=== PATIENT | female | born 1950 | race Caucasian/White ===

== ENCOUNTER 2018-02-12 12:48 | Inpatient (IN) | payer OTHER ==
[2018-02-12] MEDS: SODIUM CHLORIDE 0.9% 1L BAG IV* (12:54)
[2018-02-12 13:44] LABS: ABNORMAL IP MESSAGE 1; HEMOGLOBIN 8.1 g/dl (12.0-16.0); MEAN CORPUSCULAR HEMOGLOBIN 32.8 pg (29.0-33.0); MEAN CORPUSCULAR HGB CONC 32.4 g/dl (32.0-37.0); MEAN CORPUSCULAR VOLUME 101.2 fl (82.0-101.0); MEAN PLATELET VOLUME 10.8 fl (7.4-10.4); PLATELET COUNT 167 10^3/UL (140-415); RED BLOOD COUNT 2.47 10^6/ul (4.20-5.40); RED CELL DISTRIBUTION WIDTH 14.1 % (11.5-14.5)
[2018-02-12 13:44] LABS: WHITE BLOOD COUNT 0.9 10^3/ul (4.8-10.8)
[2018-02-12 13:47] LABS: ADD MAN DIFF? YES; POSITIVE DIFF @See below
[2018-02-12 13:50] LABS: PATH REVIEW? YES
[2018-02-12 14:02] LABS: ALANINE AMINOTRANSFERASE 33 IU/L (13-69); ALBUMIN 3.4 g/dl (3.3-4.9); ALBUMIN/GLOBULIN RATIO 1.03; ALKALINE PHOSPHATASE 89 IU/L (42-121); AMYLASE 63 U/L (11-123); ANION GAP 14 (5-13); ASPARTATE AMINO TRANSFERASE 81 IU/L (15-46); BILIRUBIN,INDIRECT 1.6 mg/dl (0-1.1); BILIRUBIN,TOTAL 2.5 mg/dl (0.2-1.3); BLOOD UREA NITROGEN 36 mg/dl (7-20); CARBON DIOXIDE 25 mmol/L (21-31); CHLORIDE 95 mmol/L (97-110); CREATININE 2.53 mg/dl (0.44-1.00); Estimated GFR 19 mL/min (>60); GLUCOSE 115 mg/dl (70-220); LIPASE 34 U/L (23-300); POTASSIUM 3.1 mmol/L (3.5-5.1); SODIUM 134 mmol/L (135-144); TOTAL PROTEIN 6.7 g/dl (6.1-8.1)
[2018-02-12 14:09] LABS: INR 0.97
[2018-02-12 14:10] LABS: PARTIAL THROMBOPLASTIN TIME 38.4 Sec (23.0-35.0)
[2018-02-12 14:13] LABS: TROPONIN-I < 0.012 ng/ml (0.000-0.120)
[2018-02-12] MEDS: CEFEPIME 2GM/50 ML (PMX) 50 ML IVPB (14:15)
[2018-02-12 14:29] LABS: ADD UMIC YES; UR AMORPHOUS CRYSTAL FEW /HPF (NONE SEEN); UR ASCORBIC ACID NEGATIVE (NEGATIVE); UR BACTERIA MANY /HPF (NONE SEEN); UR BILIRUBIN (Dip) NEGATIVE (NEGATIVE); UR BLOOD (Dip) 3+ mg/dL (NEGATIVE); UR CLARITY CLOUDY (CLEAR); UR COLOR AMBER (YELLOW); UR GLUCOSE (Dip) NEGATIVE (NEGATIVE); UR KETONES (Dip) NEGATIVE (NEGATIVE); UR LEUKOCYTE ESTERASE (Dip) TRACE Leu/ul (NEGATIVE); UR NITRITE (Dip) NEGATIVE (NEGATIVE); UR RBC 0 /HPF (0-5); UR SPECIFIC GRAVITY (Dip) 1.012 (1.003-1.030); UR TOTAL PROTEIN (Dip) 2+ mg/dl (NEGATIVE); UR UROBILINOGEN (Dip) 2+ mg/dL (NEGATIVE); UR WBC 10 /HPF (0-5)
[2018-02-12 14:41] LABS: LYMPHOCYTES % (M) 20 % (15-51); SEGMENTED NEUTROPHILS (M) % 63 % (39-77)
[2018-02-12 14:42] LABS: ANISOCYTOSIS 2+ (0-0); BURR CELLS 1+ (0-0); EOSINOPHILS % (M) 16 % (0-7); ERYTHROBLAST% (NRBC) (M) 1 % (0-0); GIANT THROMBO% (M) 5 % (0-0); LYMPHOCYTES #M 0.1 10^3/ul (0.8-2.9); MONOCYTES % (M) 1 % (0-11); PLATELET ESTIMATE NORMAL; POIKILOCYTOSIS 1+ (0-0); SMUDGE%M 8 % (0-0)
[2018-02-12] MEDS: VANCOMYCIN 1 GM (PMX) 250 ML IVPB (16:01)
[2018-02-12] MEDS: POTASSIUM CHLORIDE (SR) 10 MEQ TAB PO (17:59)
[2018-02-12] MEDS ORDERED: ONDANSETRON 4 MG INJ IV (18:00)
[2018-02-12] MEDS ORDERED: ACETAMINOPHEN 325 MG TAB PO (18:00)
[2018-02-12] MEDS ORDERED: HYDROCODONE/APAP (5/325) TAB PO (19:00)
[2018-02-12] MEDS ORDERED: NACL 0.9% 3 ML SYG IV (19:00)
[2018-02-12] MEDS: SOD CHLORIDE 0.9% 1,000 ML IV ×2 (19:20→21:06)
[2018-02-12] MEDS ORDERED: LORAZEPAM 2 MG INJ (20:07)
[2018-02-12] MEDS: LORAZEPAM 2 MG INJ IV (20:16)
[2018-02-12] MEDS ORDERED: HEPARIN 5,000 UNIT/0.5 ML VIAL (20:58)
[2018-02-12] MEDS: HEPARIN 5,000 UNIT/1 ML VIAL SC (21:00)
[2018-02-13 05:13] LABS: WHITE BLOOD COUNT 0.8 10^3/ul (4.8-10.8)
[2018-02-13 05:13] LABS: ABNORMAL IP MESSAGE 1; HEMATOCRIT 21.7 % (37.0-47.0); HEMOGLOBIN 7.1 g/dl (12.0-16.0); MEAN CORPUSCULAR HEMOGLOBIN 32.4 pg (29.0-33.0); MEAN CORPUSCULAR HGB CONC 32.7 g/dl (32.0-37.0); MEAN CORPUSCULAR VOLUME 99.1 fl (82.0-101.0); MEAN PLATELET VOLUME 10.8 fl (7.4-10.4); PLATELET COUNT 178 10^3/UL (140-415); RED BLOOD COUNT 2.19 10^6/ul (4.20-5.40); RED CELL DISTRIBUTION WIDTH 14.3 % (11.5-14.5)
[2018-02-13 05:15] LABS: HAAIG REFLEX REFLEX FILED
[2018-02-13 05:16] LABS: ADD MAN DIFF? YES; POSITIVE DIFF @See below
[2018-02-13 05:29] LABS: HEMOGLOBIN A1C 5.8 % (0-5.9)
[2018-02-13 05:40] LABS: PROTIME 13.3 Sec (11.9-14.9)
[2018-02-13 05:43] LABS: IRON 53 ug/dl (35-150)
[2018-02-13 05:50] LABS: ALANINE AMINOTRANSFERASE 43 IU/L (13-69); ALBUMIN 2.7 g/dl (3.3-4.9); ALBUMIN/GLOBULIN RATIO 0.93; ALKALINE PHOSPHATASE 78 IU/L (42-121); ANION GAP 11 (5-13); ASPARTATE AMINO TRANSFERASE 97 IU/L (15-46); BILIRUBIN,TOTAL 2.1 mg/dl (0.2-1.3); BLOOD UREA NITROGEN 29 mg/dl (7-20); CALCIUM 7.3 mg/dl (8.4-10.2); CARBON DIOXIDE 22 mmol/L (21-31); CHLORIDE 105 mmol/L (97-110); CREATININE 1.78 mg/dl (0.44-1.00); Estimated GFR 29 mL/min (>60); GLUCOSE 128 mg/dl (70-220); POTASSIUM 3.1 mmol/L (3.5-5.1); SODIUM 138 mmol/L (135-144); TOTAL PROTEIN 5.6 g/dl (6.1-8.1)
[2018-02-13 05:52] LABS: % IRON SATURATION 27 % SAT (22-52); TOTAL IRON BINDING CAPACITY 193 ug/dl (241-421)
[2018-02-13 06:14] LABS: HEPATITIS B SURFACE ANTIGEN NEGATIVE (NEGATIVE)
[2018-02-13 06:16] LABS: THYROID STIMULATING HORMONE 0.704 MIU/L (0.465-4.680)
[2018-02-13 06:31] LABS: HEPATITIS B CORE ANTIBODY NEGATIVE (NEGATIVE); HEPATITIS C VIRAL ANTIBODY NEGATIVE (NEGATIVE); HIV 1&2 ANTIBODY NEGATIVE (NEGATIVE)
[2018-02-13 07:19] LABS: LACTATE DEHYDROGENASE 530 IU/L (313-618)
[2018-02-13 07:36] LABS: BURR CELLS 1+ (0-0); GIANT THROMBO% (M) 1 % (0-0); LYMPHOCYTES #M 0.3 10^3/ul (0.8-2.9); MONOCYTES % (M) 2 % (0-11); OVALOCYTES 1+ (0-0); PLATELET ESTIMATE NORMAL; POIKILOCYTOSIS 1+ (0-0); SCHISTOCYTES 1+ (0-0); SEG NEUT #M 0.3 10^3/ul (1.6-7.5); TARGET CELLS 1+ (0-0)
[2018-02-13 07:48] LABS: ERYTHROCYTE SEDIMENTATION RATE 65 mm/Hr (0-30)
[2018-02-13] MEDS: CEFTRIAXONE 2 GM/50 ML (PMX) 50 ML IVPB (07:58)
[2018-02-13] MEDS: SOD CHLORIDE 0.9% 1,000 ML IV ×2 (07:59→20:38)
[2018-02-13 09:17] LABS: ANISOCYTOSIS 3+ (0-0); BAND NEUTROPHILS % (M) 10 % (0-4); EOSINOPHILS % (M) 8 % (0-7); LYMPHOCYTES % (M) 44 % (15-51); REACTIVE LYMPHOCYTES% (M) 3 % (0-0); SEGMENTED NEUTROPHILS (M) % 33 % (39-77); SMUDGE%M 14 % (0-0)
[2018-02-13] MEDS ORDERED: HEPARIN 5,000 UNIT/0.5 ML VIAL ×2 (09:20→20:21)
[2018-02-13] MEDS: HEPARIN 5,000 UNIT/1 ML VIAL SC ×2 (09:25→20:38)
[2018-02-13 11:03] LABS: INR 1.02; PROTIME 13.5 Sec (11.9-14.9); PT RATIO 1.1
[2018-02-13] MEDS: POTASSIUM CHLORIDE (SR) 20 MEQ TAB PO (11:11)
[2018-02-13 15:25] LABS: RAPID PLASMA REAGIN NONREACTIVE (NR)
[2018-02-13 18:19] LABS: CREATININE,URINE RANDOM 48.99 mg/dl (20-320); PROTEIN/CREAT RATIO 1.89 RATIO
[2018-02-13 18:33] LABS: SODIUM,URINE RANDOM 54 mmol/L (30-90)
[2018-02-14] MEDS: SOD CHLORIDE 0.9% 1,000 ML IV (04:23)
[2018-02-14] MEDS: HEPARIN 5,000 UNIT/1 ML VIAL SC ×2 (05:45→20:51)
[2018-02-14] MEDS: HALOPERIDOL 5 MG INJ IM (06:25)
[2018-02-14] MEDS: CEFTRIAXONE 2 GM/50 ML (PMX) 50 ML IVPB (06:25)
[2018-02-14 10:17] LABS: RETICULOCYTE COUNT % 0.5 % (0.5-1.5)
[2018-02-14 10:17] LABS: RETICULOCYTE RBC 2.06
[2018-02-14 10:45] LABS: CREATINE KINASE 261 IU/L (23-200)
[2018-02-14 10:45] LABS: URIC ACID 2.9 mg/dl (3.1-7.9)
[2018-02-14 14:42] LABS: HAPTOGLOBIN 365 mg/dL (43-212)
[2018-02-14 15:41] LABS: ANION GAP 15 (5-13); BLOOD UREA NITROGEN 21 mg/dl (7-20); CALCIUM 7.9 mg/dl (8.4-10.2); CARBON DIOXIDE 22 mmol/L (21-31); CHLORIDE 106 mmol/L (97-110); CREATININE 1.51 mg/dl (0.44-1.00); Estimated GFR 34 mL/min (>60); GLUCOSE 116 mg/dl (70-220); POTASSIUM 3.4 mmol/L (3.5-5.1); SODIUM 143 mmol/L (135-144)
[2018-02-14] MEDS ORDERED: HEPARIN 5,000 UNIT/0.5 ML VIAL (20:38)
[2018-02-15] MEDS: HALOPERIDOL 5 MG INJ IM (03:59)
[2018-02-15] MEDS: CEFTRIAXONE 2 GM/50 ML (PMX) 50 ML IVPB (05:26)
[2018-02-15 05:49] LABS: ADD MAN DIFF? NO
[2018-02-15 05:56] LABS: WHITE BLOOD COUNT 0.6 10^3/ul (4.8-10.8)
[2018-02-15 05:56] LABS: ABNORMAL IP MESSAGE 1; EOSINOPHILS % 6.7 % (0.0-7.0); HEMATOCRIT 20.7 % (37.0-47.0); LYMPHOCYTES # 0.3 10^3/ul (0.8-2.9); MEAN CORPUSCULAR HEMOGLOBIN 32.1 pg (29.0-33.0); MEAN CORPUSCULAR HGB CONC 32.9 g/dl (32.0-37.0); MEAN CORPUSCULAR VOLUME 97.6 fl (82.0-101.0); MEAN PLATELET VOLUME 10.8 fl (7.4-10.4); MONOCYTES % 3.3 % (0.0-11.0); NEUTROPHIL # 0.2 10^3/ul (1.6-7.5); PLATELET COUNT 192 10^3/UL (140-415); RED BLOOD COUNT 2.12 10^6/ul (4.20-5.40)
[2018-02-15 06:05] LABS: HEMOGLOBIN 6.8 g/dl (12.0-16.0); LYMPHOCYTES % 51.7 % (15.0-51.0); POSITIVE DIFF @See below
[2018-02-15] MEDS: SOD CHLORIDE 0.9% 250 ML IV* (06:08)
[2018-02-15 06:09] LABS: MAGNESIUM 1.2 mg/dl (1.7-2.5)
[2018-02-15 06:12] LABS: INR 0.97; PARTIAL THROMBOPLASTIN TIME 32.5 Sec (23.0-35.0)
[2018-02-15 06:23] LABS: ALANINE AMINOTRANSFERASE 72 IU/L (13-69); ALBUMIN 2.9 g/dl (3.3-4.9); ALBUMIN/GLOBULIN RATIO 0.96; ALKALINE PHOSPHATASE 82 IU/L (42-121); ANION GAP 12 (5-13); ASPARTATE AMINO TRANSFERASE 122 IU/L (15-46); BILIRUBIN,INDIRECT 1.1 mg/dl (0-1.1); BILIRUBIN,TOTAL 1.2 mg/dl (0.2-1.3); BLOOD UREA NITROGEN 18 mg/dl (7-20); CARBON DIOXIDE 26 mmol/L (21-31); CHLORIDE 104 mmol/L (97-110); CREATININE 1.42 mg/dl (0.44-1.00); Estimated GFR 37 mL/min (>60); GLUCOSE 130 mg/dl (70-220); SODIUM 142 mmol/L (135-144); TOTAL PROTEIN 5.9 g/dl (6.1-8.1)
[2018-02-15 06:29] LABS: POTASSIUM 2.8 mmol/L (3.5-5.1)
[2018-02-15] MEDS ORDERED: PROPOFOL 200 MG INJ (07:00)
[2018-02-15 07:37] LABS: ANISOCYTOSIS 2+ (0-0); BAND NEUTROPHILS % (M) 1 % (0-4); BASOPHILS % (M) 1 % (0-2); BURR CELLS 1+ (0-0); ELLIPTO 1+ (0-0); EOSINOPHILS % (M) 4 % (0-7); HYPOCHROMASIA 2+ (0-0); LYMPHOCYTES #M 0.2 10^3/ul (0.8-2.9); LYMPHOCYTES % (M) 49 % (15-51); OVALOCYTES 1+ (0-0); PLATELET ESTIMATE NORMAL; POIKILOCYTOSIS 1+ (0-0); SEG NEUT #M 0.3 10^3/ul (1.6-7.5); SEGMENTED NEUTROPHILS (M) % 45 % (39-77); SMUDGE%M 9 % (0-0)
[2018-02-15] MEDS: MAGNESIUM SULFATE 4 GM/100 ML 100 ML IVPB (07:49)
[2018-02-15] MEDS: HEPARIN 5,000 UNIT/1 ML VIAL SC ×2 (08:58→21:05)
[2018-02-15] MEDS: LORAZEPAM 2 MG INJ IV ×2 (08:59→10:30)
[2018-02-15] MEDS: POTASSIUM CHLORIDE 100 ML IVPB ×3 (11:00→20:52)
[2018-02-15] MEDS: LIDOCAINE 1% (MPF) 5 ML VIAL (11:34)
[2018-02-15] MEDS: MIDAZOLAM 1 MG/ML 2 ML INJ (12:03)
[2018-02-15] MEDS: PROPOFOL 100 ML (12:04)
[2018-02-15] MEDS: EPHEDrine SULFATE 50 MG/5 ML SYG (12:37)
[2018-02-15] MEDS ORDERED: HYDROmorphONE 1 MG/5 ML IV SYRINGE IV ×2 (13:00)
[2018-02-15] MEDS ORDERED: FENTAnyl 50 MCG/ML VIAL IV (13:00)
[2018-02-15] MEDS ORDERED: MIDAZOLAM 1 MG/ML 2 ML INJ IV (13:00)
[2018-02-15] MEDS ORDERED: ONDANSETRON 4 MG INJ IV (13:00)
[2018-02-15] MEDS ORDERED: DIPHENHYDRAMINE 50 MG INJ IV (13:00)
[2018-02-15] MEDS ORDERED: LEVALBUTEROL (NEB) 1.25 MG/0.5 ML AMP HHN (13:00)
[2018-02-15 16:28] LABS: COLLECTION PERIOD 24 hrs
[2018-02-15 16:57] LABS: CREATININE,URINE RANDOM 40.35 mg/dl (20-320)
[2018-02-15 16:59] LABS: COLLECTION PERIOD 24 hrs; VOLUME 1075 ml/24hrs
[2018-02-15 17:00] LABS: CREATININE CLEARANCE 21.2 mls/min (84.0-162.0); SCRET 1.42 mg/dl (0.44-1.00)
[2018-02-15 17:06] LABS: VOLUME 1075 mls
[2018-02-15] MEDS ORDERED: HEPARIN 5,000 UNIT/0.5 ML VIAL (20:48)
[2018-02-16] MEDS: POTASSIUM CHLORIDE 100 ML IVPB (01:04)
[2018-02-16 01:11] LABS: AMPHETAMINE/METHAMPHETAMINE Negative (NEGATIVE); BARBITURATES Negative (NEGATIVE); BENZODIAZEPINES Positive (NEGATIVE); CANNABINOIDS Negative (NEGATIVE); COCAINE Negative (NEGATIVE); OPIATES Negative (NEGATIVE)
[2018-02-16 03:29] LABS: IMMEDIATE SPIN CROSSMATCH 1 2
[2018-02-16] MEDS: CEFTRIAXONE 2 GM/50 ML (PMX) 50 ML IVPB (06:30)
[2018-02-16] MEDS: HEPARIN 5,000 UNIT/1 ML VIAL SC ×2 (09:00→21:23)
[2018-02-16] MEDS ORDERED: HEPARIN 5,000 UNIT/0.5 ML VIAL ×2 (09:09→21:17)
[2018-02-16 09:29] LABS: ABNORMAL IP MESSAGE 1; HEMATOCRIT 28.6 % (37.0-47.0); HEMOGLOBIN 9.7 g/dl (12.0-16.0); MEAN CORPUSCULAR HGB CONC 33.9 g/dl (32.0-37.0); MEAN CORPUSCULAR VOLUME 91.4 fl (82.0-101.0); MEAN PLATELET VOLUME 10.3 fl (7.4-10.4); PLATELET COUNT 168 10^3/UL (140-415); RED BLOOD COUNT 3.13 10^6/ul (4.20-5.40); RED CELL DISTRIBUTION WIDTH 17.1 % (11.5-14.5)
[2018-02-16 09:31] LABS: POSITIVE DIFF @See below
[2018-02-16 09:32] LABS: ADD MAN DIFF? YES
[2018-02-16 09:56] LABS: ALANINE AMINOTRANSFERASE 66 IU/L (13-69); ALBUMIN/GLOBULIN RATIO 0.93; ALKALINE PHOSPHATASE 87 IU/L (42-121); ANION GAP 12 (5-13); ASPARTATE AMINO TRANSFERASE 76 IU/L (15-46); BLOOD UREA NITROGEN 14 mg/dl (7-20); CALCIUM 8.2 mg/dl (8.4-10.2); CARBON DIOXIDE 25 mmol/L (21-31); CHLORIDE 104 mmol/L (97-110); CREATININE 1.31 mg/dl (0.44-1.00); Estimated GFR 41 mL/min (>60); GLUCOSE 121 mg/dl (70-220); POTASSIUM 3.5 mmol/L (3.5-5.1); SODIUM 141 mmol/L (135-144); TOTAL PROTEIN 6.2 g/dl (6.1-8.1)
[2018-02-16 09:58] LABS: INR 0.88; PARTIAL THROMBOPLASTIN TIME 29.4 Sec (23.0-35.0); PT RATIO 0.9
[2018-02-16 10:12] LABS: AMMONIA < 9 umol/l (9-30)
[2018-02-16] MEDS: LIDOCAINE 1% (MPF) 5 ML VIAL (10:13)
[2018-02-16 10:35] LABS: ANISOCYTOSIS 2+ (0-0); BAND NEUTROPHILS % (M) 7 % (0-4); BURR CELLS 1+ (0-0); ELLIPTO 1+ (0-0); EOSINOPHILS % (M) 6 % (0-7); GIANT THROMBO% (M) 4 % (0-0); LYMPHOCYTES #M 0.5 10^3/ul (0.8-2.9); LYMPHOCYTES % (M) 58 % (15-51); MONOCYTES % (M) 2 % (0-11); PLATELET ESTIMATE NORMAL; POIKILOCYTOSIS 1+ (0-0); SEG NEUT #M 0.3 10^3/ul (1.6-7.5); SEGMENTED NEUTROPHILS (M) % 27 % (39-77); SMUDGE%M 6 % (0-0); SPHEROCYTES 1+ (0-0); TARGET CELLS 1+ (0-0)
[2018-02-16] MEDS ORDERED: FENTAnyl 50 MCG/ML VIAL IV ×2 (13:00)
[2018-02-16] MEDS ORDERED: DIPHENHYDRAMINE 50 MG INJ IV (13:00)
[2018-02-16] MEDS ORDERED: LABETALOL HCL 20MG INJ IV (13:00)
[2018-02-16] MEDS ORDERED: HYDROmorphONE 1 MG/5 ML IV SYRINGE IV ×2 (13:00)
[2018-02-16] MEDS ORDERED: METOCLOPRAMIDE 10 MG INJ IV (13:00)
[2018-02-16] MEDS ORDERED: hydrALAzine 20 MG INJ IV (13:00)
[2018-02-16] MEDS ORDERED: ALBUMIN HUMAN 5% 250 ML IV (13:00)
[2018-02-16] MEDS ORDERED: ONDANSETRON 4 MG INJ IV (13:00)
[2018-02-16] MEDS ORDERED: EPHEDrine SULFATE 50 MG/5 ML SYG IV (13:00)
[2018-02-16] MEDS: PROPOFOL 40 ML (13:50)
[2018-02-16] MEDS: PHENYLephrine (100 MCG/ML) 5ML SYG (13:50)
[2018-02-16 13:54] LABS: CSF RBC 0 /uL (0-0); CSF WBC 3 /cmm (0-10)
[2018-02-16 14:18] LABS: CSF CLARITY CLEAR; CSF COLOR COLORLESS; CSF WBC 3 /cmm (0-10); CSF#TUBE COUNT TUBE#1; CSF#TUBES REC'D 3
[2018-02-16 14:19] LABS: CSF MN% 33.3 %; CSF PMN% 66.7 %; CSF RBC 0 /uL (0-0)
[2018-02-16 14:21] LABS: CSF COLOR COLORLESS
[2018-02-16 14:21] LABS: CSF CLARITY CLEAR; CSF#TUBE COUNT TUBE#3; CSF#TUBES REC'D 3
[2018-02-16 14:58] LABS: GLUCOSE,CSF 76 mg/dl (50-80)
[2018-02-16 14:58] LABS: TOTAL PROTEIN,CSF 62 mg/dl (12-60)
[2018-02-16 23:09] LABS: ERYTHROPOIETIN 117.7 mIU/mL (2.6-18.5)
[2018-02-17 06:00] LABS: ABNORMAL IP MESSAGE 1; HEMATOCRIT 30.2 % (37.0-47.0); MEAN CORPUSCULAR HEMOGLOBIN 31.1 pg (29.0-33.0); MEAN CORPUSCULAR HGB CONC 33.1 g/dl (32.0-37.0); MEAN CORPUSCULAR VOLUME 93.8 fl (82.0-101.0); MEAN PLATELET VOLUME 10.8 fl (7.4-10.4); PLATELET COUNT 131 10^3/UL (140-415); RED BLOOD COUNT 3.22 10^6/ul (4.20-5.40)
[2018-02-17 06:27] LABS: POSITIVE DIFF @See below
[2018-02-17 06:28] LABS: ADD MAN DIFF? YES
[2018-02-17] MEDS: CEFTRIAXONE 2 GM/50 ML (PMX) 50 ML IVPB (06:37)
[2018-02-17 07:00] LABS: ALANINE AMINOTRANSFERASE 61 IU/L (13-69); ALBUMIN 3.1 g/dl (3.3-4.9); ALBUMIN/GLOBULIN RATIO 0.91; ALKALINE PHOSPHATASE 81 IU/L (42-121); ANION GAP 12 (5-13); ASPARTATE AMINO TRANSFERASE 69 IU/L (15-46); BILIRUBIN,INDIRECT 1.2 mg/dl (0-1.1); BILIRUBIN,TOTAL 1.2 mg/dl (0.2-1.3); BLOOD UREA NITROGEN 16 mg/dl (7-20); CALCIUM 8.3 mg/dl (8.4-10.2); CARBON DIOXIDE 26 mmol/L (21-31); CHLORIDE 108 mmol/L (97-110); CREATININE 1.32 mg/dl (0.44-1.00); Estimated GFR 40 mL/min (>60); GLUCOSE 94 mg/dl (70-220); SODIUM 146 mmol/L (135-144); TOTAL PROTEIN 6.5 g/dl (6.1-8.1)
[2018-02-17 07:37] LABS: POTASSIUM 3.9 mmol/L (3.5-5.1)
[2018-02-17] MEDS ORDERED: HEPARIN 5,000 UNIT/0.5 ML VIAL ×2 (09:07→20:06)
[2018-02-17] MEDS: NICOTINE (21 MG/24 HR) PATCH TRANSDERM (09:13)
[2018-02-17] MEDS: HEPARIN 5,000 UNIT/1 ML VIAL SC ×2 (09:14→20:32)
[2018-02-17 09:16] LABS: ANISOCYTOSIS 1+ (0-0); BAND NEUTROPHILS % (M) 3 % (0-4); BASOPHILS % (M) 2 % (0-2); BURR CELLS 1+ (0-0); EOSINOPHILS % (M) 12 % (0-7); ERYTHROBLAST% (NRBC) (M) 1 % (0-0); LYMPHOCYTES #M 0.5 10^3/ul (0.8-2.9); LYMPHOCYTES % (M) 55 % (15-51); MONOCYTES % (M) 2 % (0-11); OVALOCYTES 1+ (0-0); PLATELET ESTIMATE INCREASED; POIKILOCYTOSIS 1+ (0-0); SEG NEUT #M 0.3 10^3/ul (1.6-7.5); SEGMENTED NEUTROPHILS (M) % 27 % (39-77); SMUDGE%M 29 % (0-0)
[2018-02-17] MEDS ORDERED: PENDING SANTYL ORDER FOR WOUND CARE XX (16:30)
[2018-02-17 17:42] LABS: LYMPHOCYTE - % CD4 (HELPER) 66 % (30-61); LYMPHOCYTE - %CD8 (SUPPRESSOR) 17 % (12-42); LYMPHOCYTE - ABSOLUTE 591 cells/uL (850-3900); LYMPHOCYTE - ABSOLUTE CD4 392 cells/uL (490-1740); LYMPHOCYTE - ABSOLUTE CD8 99 cells/uL (180-1170); LYMPHOCYTE - CD4/CD8 RATIO 3.94 (0.86-5.00)
[2018-02-18] MEDS: CEFTRIAXONE 2 GM/50 ML (PMX) 50 ML IVPB (05:51)
[2018-02-18] MEDS ORDERED: HEPARIN 5,000 UNIT/0.5 ML VIAL ×2 (08:37→20:16)
[2018-02-18] MEDS: NICOTINE (21 MG/24 HR) PATCH TRANSDERM (09:00)
[2018-02-18] MEDS: COLLAGENASE 5 GM (UD JAR) TOP ×2 (09:00→14:25)
[2018-02-18] MEDS ORDERED: COLLAGENASE 5 GM (UD JAR) TOP (09:00)
[2018-02-18] MEDS: HEPARIN 5,000 UNIT/1 ML VIAL SC ×2 (09:13→20:38)
[2018-02-19] MEDS: CEFTRIAXONE 2 GM/50 ML (PMX) 50 ML IVPB (05:22)
[2018-02-19 07:09] LABS: ABNORMAL IP MESSAGE 1; HEMATOCRIT 27.8 % (37.0-47.0); HEMOGLOBIN 9.1 g/dl (12.0-16.0); MEAN CORPUSCULAR HEMOGLOBIN 30.7 pg (29.0-33.0); MEAN CORPUSCULAR HGB CONC 32.7 g/dl (32.0-37.0); MEAN CORPUSCULAR VOLUME 93.9 fl (82.0-101.0); MEAN PLATELET VOLUME 10.9 fl (7.4-10.4); PLATELET COUNT 118 10^3/UL (140-415); RED BLOOD COUNT 2.96 10^6/ul (4.20-5.40); RED CELL DISTRIBUTION WIDTH 15.5 % (11.5-14.5)
[2018-02-19 07:09] LABS: WHITE BLOOD COUNT 0.9 10^3/ul (4.8-10.8)
[2018-02-19 07:15] LABS: ADD MAN DIFF? YES; POSITIVE DIFF @See below
[2018-02-19 07:36] LABS: ANION GAP 11 (5-13); BLOOD UREA NITROGEN 16 mg/dl (7-20); CALCIUM 8.1 mg/dl (8.4-10.2); CARBON DIOXIDE 23 mmol/L (21-31); CHLORIDE 106 mmol/L (97-110); CREATININE 1.31 mg/dl (0.44-1.00); Estimated GFR 41 mL/min (>60); GLUCOSE 126 mg/dl (70-220); POTASSIUM 3.1 mmol/L (3.5-5.1); SODIUM 140 mmol/L (135-144)
[2018-02-19] MEDS: POTASSIUM CHLORIDE (SR) 20 MEQ TAB PO (09:42)
[2018-02-19] MEDS: NICOTINE (21 MG/24 HR) PATCH TRANSDERM (09:43)
[2018-02-19] MEDS: COLLAGENASE 5 GM (UD JAR) TOP (16:55)
[2018-02-19] MEDS: FILGRASTIM 300 MCG INJ SC (16:55)
[2018-02-20 01:42] LABS: VITAMIN B1 (THIAMINE) 64 nmol/L (78-185)
[2018-02-20] MEDS ORDERED: FILGRASTIM 300 MCG INJ SC (17:00)
== END 2018-02-19 19:06 | DRG 853 ==
LOC: 6WM 02-15 09:12 → PP2 02-17 02:09 → E/R 12:48 → 6WM 17:37
PROVIDERS: Internal Medicine
PROC: 009U3ZX Drainage of Spinal Canal, Percutaneous Approach, Diagnostic (ICD-10-PCS; 2018-02-16 11:00)
PROC: B01BZZZ Fluoroscopy of Spinal Cord (ICD-10-PCS; 2018-02-16 11:00)
PROC: 07DR3ZX Extraction of Iliac Bone Marrow, Percutaneous Approach, Diagnostic (ICD-10-PCS; principal; 2018-02-16 12:34)
PROC: 0QB33ZX Excision of Left Pelvic Bone, Percutaneous Approach, Diagnostic (ICD-10-PCS; 2018-02-16 12:34)
PROC: 30233N1 Transfusion of Nonautologous Red Blood Cells into Peripheral Vein, Percutaneous Approach (ICD-10-PCS; 2018-02-16 12:34)
DX: A41.9 Sepsis, unspecified organism (principal); G92 Toxic encephalopathy; N17.0 Acute kidney failure with tubular necrosis; D61.811 Other drug-induced pancytopenia; N39.0 Urinary tract infection, site not specified; E87.1 Hypo-osmolality and hyponatremia; E46 Unspecified protein-calorie malnutrition; Z68.24 Body mass index [BMI] 24.0-24.9, adult; I12.9 Hypertensive chronic kidney disease with stage 1 through stage 4 chronic kidney disease, or unspecified chronic kidney disease; E87.6 Hypokalemia; Z86.73 Personal history of transient ischemic attack (TIA), and cerebral infarction without residual deficits; E80.6 Other disorders of bilirubin metabolism; Z91.81 History of falling; N18.3 Chronic kidney disease, stage 3 (moderate); B96.20 Unspecified Escherichia coli [E. coli] as the cause of diseases classified elsewhere; E78.5 Hyperlipidemia, unspecified; T45.1X5A Adverse effect of antineoplastic and immunosuppressive drugs, initial encounter; E83.39 Other disorders of phosphorus metabolism; E83.42 Hypomagnesemia
CPT/HCPCS: 36430; 70450; 70551; 71045; 76700; 77002; 77012; 80048; 80053; 80307; 81001; 81003; 82140; 82150; 82550; 82570; 82575; 82607; 82668; 82728; 82945; 83010; 83036; 83090; 83540; 83605; 83615; 83690; 83735; 83921; 84100; 84156; 84157; 84300; 84425; 84443; 84484; 84560; 85025; 85045; 85610; 85651; 85730; 86360; 86592; 86703; 86704; 86709; 86803; 86850; 86900; 86901; 86920; 87040; 87070; 87081; 87086; 87340; 88305; 88311; 88313; 89051; 89190; 93005; 93306; 96374; 96376; 97162; 99285-25

== ENCOUNTER 2018-02-21 13:55 | Inpatient (IN) | payer OTHER ==
[2018-02-21] MEDS: SOD CHLORIDE 0.9% 1,000 ML IV ×3 (17:02→23:11)
[2018-02-21 17:08] LABS: ADD MAN DIFF? NO
[2018-02-21 17:12] LABS: ABNORMAL IP MESSAGE 1; HEMATOCRIT 24.8 % (37.0-47.0); HEMOGLOBIN 7.8 g/dl (12.0-16.0); MEAN CORPUSCULAR HEMOGLOBIN 31.2 pg (29.0-33.0); MEAN CORPUSCULAR HGB CONC 31.5 g/dl (32.0-37.0); MEAN CORPUSCULAR VOLUME 99.2 fl (82.0-101.0); MEAN PLATELET VOLUME 11.3 fl (7.4-10.4); PLATELET COUNT 170 10^3/UL (140-415); RED CELL DISTRIBUTION WIDTH 15.9 % (11.5-14.5)
[2018-02-21 17:12] LABS: WHITE BLOOD COUNT 2.8 10^3/ul (4.8-10.8)
[2018-02-21 17:18] LABS: POSITIVE DIFF @See below
[2018-02-21 17:46] LABS: ALANINE AMINOTRANSFERASE 53 IU/L (13-69); ALBUMIN 3.1 g/dl (3.3-4.9); ALKALINE PHOSPHATASE 73 IU/L (42-121); ANION GAP 14 (5-13); ASPARTATE AMINO TRANSFERASE 41 IU/L (15-46); BILIRUBIN,INDIRECT 0.4 mg/dl (0-1.1); BILIRUBIN,TOTAL 0.4 mg/dl (0.2-1.3); BLOOD UREA NITROGEN 30 mg/dl (7-20); CALCIUM 8.7 mg/dl (8.4-10.2); CARBON DIOXIDE 24 mmol/L (21-31); CHLORIDE 99 mmol/L (97-110); CREATININE 3.14 mg/dl (0.44-1.00); Estimated GFR 15 mL/min (>60); GLUCOSE 92 mg/dl (70-220); POTASSIUM 4.7 mmol/L (3.5-5.1); SODIUM 137 mmol/L (135-144); TOTAL PROTEIN 6.2 g/dl (6.1-8.1)
[2018-02-21 17:47] LABS: ETHANOL < 10.0 mg/dl (0-0)
[2018-02-21 17:48] LABS: AMMONIA < 9 umol/l (9-30)
[2018-02-21 18:02] LABS: ANISOCYTOSIS 1+ (0-0); BAND NEUTROPHILS #M 0.1 10^3/ul (0.0-0.6); BAND NEUTROPHILS % (M) 5 % (0-4); EOSINOPHILS % (M) 6 % (0-7); ERYTHROBLAST% (NRBC) (M) 1 % (0-0); LYMPHOCYTES % (M) 39 % (15-51); METAMYELOCYTES %M 1 % (0-0); MONOCYTE #M 0.5 10^3/ul (0.3-0.9); MONOCYTES % (M) 20 % (0-11); MYELOCYTES % (M) 2 % (0-0); PLATELET MORPHOLOGY COMMENT @See below; PROMYELOCYTES % (M) 1 % (0-0); SEG NEUT #M 0.7 10^3/ul (1.6-7.5); SEGMENTED NEUTROPHILS (M) % 25 % (39-77); SMUDGE%M 10 % (0-0)
[2018-02-21 19:47] LABS: ADD UMIC YES; UR ASCORBIC ACID NEGATIVE (NEGATIVE); UR BACTERIA FEW /HPF (NONE SEEN); UR BILIRUBIN (Dip) NEGATIVE (NEGATIVE); UR BLOOD (Dip) 2+ mg/dL (NEGATIVE); UR CLARITY CLOUDY (CLEAR); UR COLOR YELLOW (YELLOW); UR GLUCOSE (Dip) NEGATIVE (NEGATIVE); UR KETONES (Dip) NEGATIVE (NEGATIVE); UR LEUKOCYTE ESTERASE (Dip) TRACE Leu/ul (NEGATIVE); UR MUCUS FEW /HPF (NONE SEEN); UR NITRITE (Dip) NEGATIVE (NEGATIVE); UR RBC 2 /HPF (0-5); UR SQUAMOUS EPITHELIAL CELL FEW /HPF (FEW); UR TOTAL PROTEIN (Dip) 1+ mg/dl (NEGATIVE); UR UROBILINOGEN (Dip) NEGATIVE (NEGATIVE); UR WBC 35 /HPF (0-5)
[2018-02-21] MEDS ORDERED: ONDANSETRON 4 MG INJ IV ×2 (20:00→22:30)
[2018-02-21] MEDS ORDERED: ACETAMINOPHEN 325 MG TAB PO ×2 (20:00→22:30)
[2018-02-21 20:11] LABS: AMPHETAMINE/METHAMPHETAMINE Negative (NEGATIVE); BARBITURATES Negative (NEGATIVE); CANNABINOIDS Negative (NEGATIVE); COCAINE Negative (NEGATIVE); OPIATES Negative (NEGATIVE)
[2018-02-21 20:17] LABS: BENZODIAZEPINES Positive (NEGATIVE)
[2018-02-21] MEDS ORDERED: ALBUTEROL/IPRATROPIUM (NEB) 3 ML AMP HHN (22:30)
[2018-02-21] MEDS ORDERED: NACL 0.9% 3 ML SYG IV (22:30)
[2018-02-21] MEDS: CEFTRIAXONE 1 GM/50 ML (PMX) 50 ML IVPB (23:22)
[2018-02-22] MEDS: SOD CHLORIDE 0.9% 1,000 ML IV ×3 (01:46→21:55)
[2018-02-22] MEDS ORDERED: PENDING SANTYL ORDER FOR WOUND CARE XX (02:00)
[2018-02-22] MEDS: LEVOTHYROXINE 75 MCG TAB PO (06:49)
[2018-02-22] MEDS: PANTOPRAZOLE (EC) 40 MG TAB PO (06:49)
[2018-02-22 07:53] LABS: ABNORMAL IP MESSAGE 1; HEMATOCRIT 23.2 % (37.0-47.0); HEMOGLOBIN 7.2 g/dl (12.0-16.0); MEAN CORPUSCULAR HEMOGLOBIN 31.4 pg (29.0-33.0); MEAN CORPUSCULAR VOLUME 101.3 fl (82.0-101.0); MEAN PLATELET VOLUME 11.6 fl (7.4-10.4); PLATELET COUNT 132 10^3/UL (140-415); RED BLOOD COUNT 2.29 10^6/ul (4.20-5.40); RED CELL DISTRIBUTION WIDTH 15.9 % (11.5-14.5)
[2018-02-22 07:53] LABS: WHITE BLOOD COUNT 3.9 10^3/ul (4.8-10.8)
[2018-02-22 07:54] LABS: ADD MAN DIFF? YES; POSITIVE DIFF @See below
[2018-02-22 08:41] LABS: ALANINE AMINOTRANSFERASE 42 IU/L (13-69); ALBUMIN 2.4 g/dl (3.3-4.9); ALBUMIN/GLOBULIN RATIO 0.82; ALKALINE PHOSPHATASE 61 IU/L (42-121); ANION GAP 11 (5-13); ASPARTATE AMINO TRANSFERASE 50 IU/L (15-46); BILIRUBIN,INDIRECT 0.2 mg/dl (0-1.1); BILIRUBIN,TOTAL 0.2 mg/dl (0.2-1.3); BLOOD UREA NITROGEN 25 mg/dl (7-20); CALCIUM 7.7 mg/dl (8.4-10.2); CARBON DIOXIDE 18 mmol/L (21-31); CHLORIDE 111 mmol/L (97-110); CREATININE 2.35 mg/dl (0.44-1.00); Estimated GFR 21 mL/min (>60); GLUCOSE 81 mg/dl (70-220); MAGNESIUM 1.4 mg/dl (1.7-2.5); POTASSIUM 4.3 mmol/L (3.5-5.1); SODIUM 140 mmol/L (135-144); TOTAL PROTEIN 5.3 g/dl (6.1-8.1)
[2018-02-22] MEDS ORDERED: IRON PO (09:00)
[2018-02-22] MEDS ORDERED: [UNRECOGNIZED DRUG - OTHER] PO (09:00)
[2018-02-22] MEDS: MAGNESIUM SULFATE 2 GM/50 ML 50 ML IVPB (09:00)
[2018-02-22] MEDS ORDERED: FOLIC ACID PO (09:00)
[2018-02-22] MEDS ORDERED: MULTIVITAMIN PO (09:00)
[2018-02-22] MEDS: AMLODIPINE 10 MG TAB PO (09:00)
[2018-02-22] MEDS ORDERED: NON-FORMULARY/PATIENT OWN MED (Omeprazole* 40 MG) PO (09:00)
[2018-02-22 09:12] LABS: ANISOCYTOSIS 1+ (0-0); BAND NEUTROPHILS #M 0.3 10^3/ul (0.0-0.6); BAND NEUTROPHILS % (M) 8 % (0-4); BURR CELLS 1+ (0-0); EOSINOPHILS % (M) 1 % (0-7); GIANT THROMBO% (M) 2 % (0-0); LYMPHOCYTES #M 1.5 10^3/ul (0.8-2.9); LYMPHOCYTES % (M) 39 % (15-51); METAMYELOCYTES %M 2 % (0-0); MONOCYTE #M 0.5 10^3/ul (0.3-0.9); MONOCYTES % (M) 14 % (0-11); MYELOCYTES #M 0.1 10^3/ul (0.0-0.0); MYELOCYTES % (M) 4 % (0-0); OVALOCYTES 1+ (0-0); PLATELET ESTIMATE NORMAL; POIKILOCYTOSIS 2+ (0-0); POLYCHROMASIA 1+ (0-0); PROMYELOCYTES % (M) 1 % (0-0); RBC MORPHOLOGY COMMENT @See below; REACTIVE LYMPHOCYTES% (M) 1 % (0-0); SEG NEUT #M 1.1 10^3/ul (1.6-7.5); SEGMENTED NEUTROPHILS (M) % 27 % (39-77); SMUDGE%M 12 % (0-0); WBC MORPHOLOGY COMMENT @See below
[2018-02-22] MEDS: MULTIVITAMINS/MINERALS TAB PO (09:51)
[2018-02-22] MEDS: ASPIRIN (EC) 81 MG TAB PO (09:51)
[2018-02-22] MEDS: CEFTRIAXONE 1 GM/50 ML (PMX) 50 ML IVPB (09:52)
[2018-02-22] MEDS: SOD CHLORIDE 0.9% 250 ML IV* (11:00)
[2018-02-22 11:44] LABS: IMMEDIATE SPIN CROSSMATCH 1 2
[2018-02-22 15:44] LABS: POTASSIUM,URINE RANDOM 11.9 mmol/L (25-125)
[2018-02-22 15:44] LABS: SODIUM,URINE RANDOM 44 mmol/L (30-90)
[2018-02-22] MEDS: CYANOCOBALAMIN 1000 MCG INJ IM (20:01)
[2018-02-22] MEDS: EPOETIN 10000 UNITS/ML VIAL (ONCOLOGY) SC (20:03)
[2018-02-22] MEDS: CLOTRIMAZOLE 1% 30 GM CR TOP (21:51)
[2018-02-22] MEDS: ATORVASTATIN 20 MG TAB PO (21:55)
[2018-02-22] MEDS: MONTELUKAST 10 MG TAB PO (21:55)
[2018-02-22] MEDS: MAGNESIUM SULFATE 1 GM/D5W 50 ML IVPB (21:56)
[2018-02-23] MEDS: MAGNESIUM SULFATE 1 GM/D5W 50 ML IVPB (00:05)
[2018-02-23] MEDS: LEVOTHYROXINE 75 MCG TAB PO (05:56)
[2018-02-23] MEDS: PANTOPRAZOLE (EC) 40 MG TAB PO (05:56)
[2018-02-23 06:28] LABS: ABNORMAL IP MESSAGE 1; HEMATOCRIT 32.2 % (37.0-47.0); HEMOGLOBIN 10.7 g/dl (12.0-16.0); MEAN CORPUSCULAR HEMOGLOBIN 29.8 pg (29.0-33.0); MEAN CORPUSCULAR HGB CONC 33.2 g/dl (32.0-37.0); MEAN CORPUSCULAR VOLUME 89.7 fl (82.0-101.0); MEAN PLATELET VOLUME 10.5 fl (7.4-10.4); NUCLEATED RED BLOOD CELLS% 0.3 /100WBC (0.0-0.0); PLATELET COUNT 199 10^3/UL (140-415); RED BLOOD COUNT 3.59 10^6/ul (4.20-5.40); RED CELL DISTRIBUTION WIDTH 20.3 % (11.5-14.5)
[2018-02-23 06:28] LABS: WHITE BLOOD COUNT 5.8 10^3/ul (4.8-10.8)
[2018-02-23 06:33] LABS: ADD MAN DIFF? YES; POSITIVE DIFF @See below
[2018-02-23] MEDS: SOD CHLORIDE 0.9% 1,000 ML IV ×2 (07:04→14:22)
[2018-02-23 07:12] LABS: ANION GAP 8 (5-13); BLOOD UREA NITROGEN 22 mg/dl (7-20); CARBON DIOXIDE 20 mmol/L (21-31); CHLORIDE 111 mmol/L (97-110); CREATININE 1.61 mg/dl (0.44-1.00); Estimated GFR 32 mL/min (>60); GLUCOSE 100 mg/dl (70-220); MAGNESIUM 1.9 mg/dl (1.7-2.5); POTASSIUM 4.3 mmol/L (3.5-5.1); SODIUM 139 mmol/L (135-144)
[2018-02-23 07:45] LABS: ANISOCYTOSIS 1+ (0-0); BAND NEUTROPHILS #M 0.5 10^3/ul (0.0-0.6); BAND NEUTROPHILS % (M) 9 % (0-4); BASOPHIL #M 0.1 10^3/ul (0.0-0.0); BASOPHILS % (M) 2 % (0-2); BURR CELLS 1+ (0-0); EOSINOPHILS % (M) 1 % (0-7); ERYTHROBLAST% (NRBC) (M) 1 % (0-0); GIANT THROMBO% (M) 1 % (0-0); LYMPHOCYTES #M 0.9 10^3/ul (0.8-2.9); LYMPHOCYTES % (M) 17 % (15-51); METAMYELOCYTES #M 0.3 10^3/ul (0.0-0.0); METAMYELOCYTES %M 6 % (0-0); MICROCYTOSIS 1+ (0-0); MONOCYTE #M 0.9 10^3/ul (0.3-0.9); MONOCYTES % (M) 16 % (0-11); MYELOCYTES #M 0.4 10^3/ul (0.0-0.0); MYELOCYTES % (M) 7 % (0-0); PLATELET ESTIMATE NORMAL; POIKILOCYTOSIS 1+ (0-0); PROMYELOCYTES % (M) 1 % (0-0); REACTIVE LYMPHOCYTES #M 0.1 10^3/ul (0.0-0.0); REACTIVE LYMPHOCYTES% (M) 3 % (0-0); SEG NEUT #M 2.2 10^3/ul (1.6-7.5); SEGMENTED NEUTROPHILS (M) % 38 % (39-77); SMUDGE%M 7 % (0-0); TARGET CELLS 1+ (0-0); TOXIC GRANULATION 1+ (0-0)
[2018-02-23] MEDS: CEFTRIAXONE 1 GM/50 ML (PMX) 50 ML IVPB (08:10)
[2018-02-23] MEDS: CYANOCOBALAMIN 1000 MCG INJ IM (08:14)
[2018-02-23] MEDS: AMLODIPINE 10 MG TAB PO (08:16)
[2018-02-23] MEDS: CLOTRIMAZOLE 1% 30 GM CR TOP (08:17)
[2018-02-23] MEDS: MULTIVITAMINS/MINERALS TAB PO (08:17)
[2018-02-23] MEDS: ASPIRIN (EC) 81 MG TAB PO (08:17)
== END 2018-02-23 15:38 | disposition home health service (06) | DRG 917 ==
LOC: E/R 13:55 → TEL 20:01
PROVIDERS: Internal Medicine; Pediatrics Neonatal-Perinatal Medicine
PROC: 30233N1 Transfusion of Nonautologous Red Blood Cells into Peripheral Vein, Percutaneous Approach (ICD-10-PCS; principal; 2018-02-22)
DX: T42.6X1A Poisoning by other antiepileptic and sedative-hypnotic drugs, accidental (unintentional), initial encounter (principal); G92 Toxic encephalopathy; N17.0 Acute kidney failure with tubular necrosis; N39.0 Urinary tract infection, site not specified; D61.818 Other pancytopenia; I95.9 Hypotension, unspecified; M32.9 Systemic lupus erythematosus, unspecified; I12.9 Hypertensive chronic kidney disease with stage 1 through stage 4 chronic kidney disease, or unspecified chronic kidney disease; E03.9 Hypothyroidism, unspecified; E78.5 Hyperlipidemia, unspecified; N18.3 Chronic kidney disease, stage 3 (moderate); B37.3 Candidiasis of vulva and vagina; B96.20 Unspecified Escherichia coli [E. coli] as the cause of diseases classified elsewhere; Z86.73 Personal history of transient ischemic attack (TIA), and cerebral infarction without residual deficits
CPT/HCPCS: 36415; 36430; 71045; 76775; 80048; 80053; 80307; 81001; 82140; 82436; 83735; 83921; 84133; 84300; 85025; 86644; 86850; 86900; 86901; 86920; 87081; 87086; 90686; 92610; 93005; 96360; 97116; 97161; 97530; 99291-25; J0885